=== PATIENT | male | born 1965 | race Two or more races ===

== ENCOUNTER 2022-10-13 13:05 | Emergency (ER) | payer OTHER ==
[~2022-10-13] VITALS: Ht 175.3 cm; Wt 83.9 kg
[2022-10-13] MEDS ORDERED: CEFADROXIL500 MG PO (18:03)
[2022-10-13] MEDS ORDERED: TETANUS DIPHTH0.5 ML IM (18:03)
== END 2022-10-13 19:38 | disposition home or self-care (01) ==
LOC: ER 13:05
DX: S91.322A Laceration with foreign body, left foot, initial encounter (principal); W45.8XXA Other foreign body or object entering through skin, initial encounter; Y93.18 Activity, surfing, windsurfing and boogie boarding; Y92.832 Beach as the place of occurrence of the external cause; Y99.9 Unspecified external cause status